=== PATIENT | male | born 1965 | race Caucasian/White ===

== ENCOUNTER → 2024-06-20 | Outpatient (CLI) | payer OTHER ==
--- NOTE | 2024-07-15 22:41 | MR ---
EXAM: MR wrist LT wo con DATE OF EXAM: 06/20/2024 COMPARISON: None HISTORY: Ganglion Left wrist, Pain and lump TECHNIQUE: Multiplanar, multisequence images of the left wrist were acquired without contrast. FINDINGS: BONES/JOINTS: Normal bone marrow signal. Normal alignment. No ulnar variance. Distal radioulnar joint is normal. No joint effusion. LIGAMENTS: Scapholunate and lunotriquetral ligaments are normal. Extrinsic carpal ligaments are rebecca l. Triangular fibrocartilaginous complex is normal. TENDONS: Flexor tendons are normal. Extensor tendons are normal. SOFT TISSUES: Carpal tunnel is normal. Guyon's canal is normal. No bursal distention. Volar radial si ded ganglion cyst measuring 1.6 x 2.3 x 1.8 cm. This ganglion cyst communicates via a long thin neck to the mid carpal row. NEUROVASCULAR: The median nerve is normal in size, signal, and location. The ulnar nerve is normal in size, signal, and location. Vascular structures are normal OTHER: Normal. IMPRESSION: Volar radial sided ganglion cyst measuring up to 2.3 cm communicating with the mid carpal row. [facility], Workstation: [employer], 07/15/2024 10:39 PM
== END | disposition home or self-care (01) ==
LOC: RADMRIMAIN 15:54
PROVIDERS: ATTEND Orthopaedic Surgery Hand Surgery
DX: M67.432 Ganglion, left wrist (principal)